=== PATIENT | female | born 1975 | race Caucasian/White ===

== ENCOUNTER 2022-06-30 07:24 | Day surgery (SDC) | payer BC ==
[2022-06-24 14:53] VITALS: BMI 28.3
[~2022-06-30 07:24] MED LIST: DEXAMETHASONE SOD PHOSPHATE 4 MG/ML 1 ML VIAL IV ONE; DEXAMETHASONE SOD PHOSPHATE 4 MG/ML 1 ML VIAL IV PRN; FAMOTIDINE 20 MG/2 ML VIAL IV PRN; HYDROmorphone 0.5 MG/0.5 ML SYRINGE IVP PRN; LACTATED RINGERS 1,000 ML IV SCH; LIDOCAINE 1% (10MG/ML) FOR IV START INTRADERMA PRN; ONDANSETRON 4 MG/2 ML VIAL IVP ONE; ONDANSETRON 4 MG/2 ML VIAL IVP PRN
[2022-06-30] MEDS ORDERED: LIDOCAINE 2% INJ 20 MG/ML (2 ML VIAL) ONE (08:50)
[2022-06-30] MEDS ORDERED: fentaNYL (PF) 50 MCG/ML 2 ML AMP ONE (08:50)
[2022-06-30] MEDS ORDERED: SUCCINYLCHOLINE CHLORIDE 200 MG/10 ML VIAL IV ONE (08:50)
[2022-06-30] MEDS ORDERED: LIDOCAINE 4% LTA KIT (4 ML) TOPICAL ONE (08:50)
[2022-06-30] MEDS ORDERED: MIDAZOLAM 2 MG/2 ML VIAL ONE (08:50)
[2022-06-30] MEDS ORDERED: PROPOFOL 10 MG/ML 20 ML VIAL IV ONE (08:50)
--- NOTE | 2022-06-30 09:43 | P.OP ---
Date of Procedure: 06/30/22 Preoperative Diagnosis: Chronic cryptic tonsillitis Postoperative Diagnosis: Same Procedure(s) Performed: Tonsillectomy Anesthesia: KARTHIKEYAN Surgeon: Octavio Richardson Estimated Blood Loss (ml): 2 Pathology: other (Tonsils) Condition: stable Disposition: PACU Indications for Procedure: This is a 47-year-old white female whose had difficulties with chronic cryptic tonsillitis and inflammation even to the point where she's had occasional tonsillar bleeding Operative Findings: Tonsils +3 bilaterally and are cryptic was sulfur granules in the crypts Description of Procedure: PROCEDURE: The patient brought to the operating suite and was placed in the supine position. The patient underwent induction of anesthesia with oral endotracheal intubation without difficulty. The patient is positioned with a head donut and shoulder roll. The patient was prepped and draped in the usual aseptic fashion. The left tonsil was then grasped with a curved Allis clamp and then dissected from the tonsillar fossa in a superior to inferior direction using both blunt and electrocautery dissection in the superior to inferior direction until the tonsil was removed. Once the tonsil was removed, hemostasis was gained with suction cautery. Once hemostatic was obtained the attention was turned to the right where the right tonsil was removed exactly as the left had been. Once this tonsil was removed, hemostasis was gained with suction cautery. Once this tonsil was removed, hemostasis was gained with suction cautery. Once hemostasis was obtained and remained good in both tonsillar fossae as well as the nasopharynx, the patient was suction in oral gastric fashion and the McIvor mouth gag was removed. The patient was allowed to emerge from general anesthesia having tolerated the procedure well. she was extubated in the operating suite and transferred to the postoperative recovery area in satisfactory condition.
[2022-06-30 10:01] VITALS: RESP 16; TEMP 97.7
[2022-06-30 12:11] VITALS: BP 146/85; PULSE 67
== END 2022-06-30 12:31 | disposition home or self-care (01) ==
LOC: OR 07:24
PROVIDERS: ATTEND Otolaryngology
DX: J35.8 Other chronic diseases of tonsils and adenoids (principal); J35.01 Chronic tonsillitis
CPT/HCPCS: 42826; 81025; 88304; J2250; J0330; J1100; J0690; J2405; J3010; J2704; J1170; J2001